=== PATIENT | female | born 1965 | race Caucasian/White ===

== ENCOUNTER 2016-11-27 13:14 | Emergency (ER) | payer OTHER ==
[~2016-11-27] VITALS: Ht 157.5 cm; Wt 54.4 kg
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
[2016-11-27] MEDS ORDERED: TDAP [DIPH/PERTUSSIS/TET] 0.5 ML VIAL IM ONE (14:05)
[2016-11-27] MEDS ORDERED: ACETAMINOPHEN ES 500 MG TABLET ONE (14:05)
[2016-11-27] MEDS: TDAP [DIPH/PERTUSSIS/TET] 0.5 ML VIAL IM ONE (14:12)
[2016-11-27] MEDS: ACETAMINOPHEN ES 500 MG TABLET PO ONE (14:14)
[2016-11-27] MEDS ORDERED: HYDROCODONE/APAP 10/325MG 1 EA TABLET ONE (14:53)
[2016-11-27] MEDS: HYDROCODONE/APAP 10/325MG 1 EA TABLET PO ONE (15:00)
[2016-11-27 15:03] VITALS: BP 115/76
== END 2016-11-27 15:07 | disposition home or self-care (01) ==
LOC: ER 13:22
DX: S09.90XA Unspecified injury of head, initial encounter (principal); S20.212A Contusion of left front wall of thorax, initial encounter; S50.02XA Contusion of left elbow, initial encounter; V49.50XA Passenger injured in collision with unspecified motor vehicles in traffic accident, initial encounter; Y93.89 Activity, other specified; Y92.89 Other specified places as the place of occurrence of the external cause; Y99.9 Unspecified external cause status
CPT/HCPCS: 71010; 73070; 90471; 90715; 99284; A4606; Z7610